=== PATIENT | male | born 1985 | race Caucasian/White ===

== ENCOUNTER 2017-11-22 12:55 | Emergency (ER) | payer MEDICAID ==
[~2017-11-22] VITALS: Ht 182.9 cm; Wt 75.0 kg
[2017-11-22] MEDS ORDERED: HYDROcodone/APAP 5/325 TABLET ONE (13:30)
[2017-11-22] MEDS ORDERED: SILVER SULF. CRM 1% , 25GM ONE (13:30)
[2017-11-22] MEDS ORDERED: KETOROLAC 30 MG/1 ML ONE (13:30)
[2017-11-22] MEDS ORDERED: DIPH,PERTUSS(ACELL),TET VAC/PF 0.5 ML IM-VACC ONE ×2 (13:31→14:00)
[2017-11-22] MEDS ORDERED: KETOROLAC 60 MG/2 ML IM ONE (14:00)
[2017-11-22] MEDS ORDERED: SILVER SULF. CRM 1% , 25GM TP ONE (14:00)
[2017-11-22] MEDS ORDERED: HYDROcodone/APAP 5/325 TABLET PO ONE (14:00)
[2017-11-22] MEDS ORDERED: LIDOCAINE GEL 2%, 5ML ONE (14:23)
[2017-11-22] MEDS ORDERED: BENZOCAINE AEROSOL SPRAY 20%, 60ML ONE (14:25)
[2017-11-22] MEDS ORDERED: LIDOCAINE 2% VISCOUS, 100ML MM ONE (14:30)
[2017-11-22] MEDS ORDERED: ONDANSETRON ODT 4 MG PO ONE (14:30)
[2017-11-22] MEDS ORDERED: HYDROmorphone 2 MG/ML, 1ML IM ONE (14:30)
[2017-11-22] MEDS ORDERED: HYDROmorphone 2 MG/ML, 1ML ONE (14:33)
[2017-11-22 16:46] VITALS: BP 128/69
== END 2017-11-22 16:48 | disposition home or self-care (01) ==
LOC: ED 14:38
DX: T22.222A Burn of second degree of left elbow, initial encounter (principal); T21.13XA Burn of first degree of upper back, initial encounter; T31.0 Burns involving less than 10% of body surface; F17.200 Nicotine dependence, unspecified, uncomplicated; F10.10 Alcohol abuse, uncomplicated; X03.8XXA Other exposure to controlled fire, not in building or structure, initial encounter; Y93.01 Activity, walking, marching and hiking; Y92.832 Beach as the place of occurrence of the external cause; Y99.8 Other external cause status
CPT/HCPCS: 16020; 90471; 90715; 96372; 99284; J1170; J1885; 16000

== ENCOUNTER 2017-11-23 15:35 | Emergency (ER) | payer MEDICAID ==
[~2017-11-23] VITALS: Ht 182.9 cm; Wt 79.0 kg
[2017-11-23 15:45] VITALS: BP 122/84
[2017-11-23] MEDS ORDERED: SILVER SULF. CRM 1% , 25GM TP ONE (17:00)
[2017-11-23] MEDS ORDERED: LIDOCAINE 2% VISCOUS 15 ML UDC MM ONE (17:00)
== END 2017-11-23 17:37 | disposition home or self-care (01) ==
LOC: ED 17:31
DX: T22.222A Burn of second degree of left elbow, initial encounter (principal); T21.24XA Burn of second degree of lower back, initial encounter; T31.0 Burns involving less than 10% of body surface; W19.XXXA Unspecified fall, initial encounter; Y93.89 Activity, other specified; Y92.89 Other specified places as the place of occurrence of the external cause; Y99.8 Other external cause status
CPT/HCPCS: 16020; 99284

== ENCOUNTER 2017-11-27 13:47 | Emergency (ER) | payer MEDICAID ==
[~2017-11-27] VITALS: Ht 182.9 cm; Wt 77.3 kg
[2017-11-27 13:53] VITALS: BP 156/77
[2017-11-27] MEDS ORDERED: LIDOCAINE 2% VISCOUS 15 ML UDC MM ONE (14:30)
[2017-11-27] MEDS ORDERED: SILVER SULF. CRM 1% , 25GM TP ONE (14:30)
[2017-11-27] MEDS ORDERED: LIDOCAINE GEL 2%, 5ML ONE ×2 (14:58→15:04)
== END 2017-11-27 15:50 | disposition home or self-care (01) ==
LOC: ED 15:44
DX: T21.24XA Burn of second degree of lower back, initial encounter (principal); T22.222A Burn of second degree of left elbow, initial encounter; T31.0 Burns involving less than 10% of body surface; F17.210 Nicotine dependence, cigarettes, uncomplicated; X08.8XXA Exposure to other specified smoke, fire and flames, initial encounter; Y93.89 Activity, other specified; Y92.89 Other specified places as the place of occurrence of the external cause; Y99.8 Other external cause status
CPT/HCPCS: 16020; 99284